=== PATIENT | male | born 1940 | race Native Hawaiian/Other Pacific Islander ===

== ENCOUNTER 2016-03-02 12:16 | Observation (INO) | payer OTHER ==
[~2016-03-02] VITALS: Ht 167.6 cm; Wt 60.5 kg
[2016-03-02] VITALS (8 sets, daily range): BP systolic 109–136; BP diastolic 62–78; PULSE 82–114; RESP 18–20; TEMP 97.7–98.2; O2SAT 95–98
[~2016-03-02 12:16] MED LIST: CEPH500C3 PO; CORE25TA PO; COUM2TAB PO; GLIM4 PO; GLUCTAB PO; HYDR-3129 PO; LEVO.1 PO; NITR0.4S SL; OMEP20TA39 PO; PRIN10TA PO; SPIR25 PO; ZOCO80TA PO
[2016-03-02] MEDS ORDERED: DIGO0.12 PO (12:40)
[2016-03-02] MEDS ORDERED: METH4TAB6 PO (12:40)
[2016-03-02] MEDS ORDERED: LORA10TA PO (12:40)
[2016-03-02] MEDS ORDERED: LEVO100T5 PO (12:40)
[2016-03-02] MEDS ORDERED: METF500T PO (12:40)
[2016-03-02] MEDS ORDERED: SIMV10TA PO (12:40)
[2016-03-02] MEDS ORDERED: NITR0.4S SL (12:40)
[2016-03-02] MEDS ORDERED: CARV25TA PO (12:40)
[2016-03-02] MEDS ORDERED: WARF-23 PO (12:40)
[2016-03-02] MEDS ORDERED: FURO40TA PO (12:40)
[2016-03-02] MEDS ORDERED: OMEP20TA PO (12:40)
[2016-03-02] MEDS ORDERED: BENZ1CAP8 PO (12:40)
[2016-03-02] MEDS ORDERED: GLIM4TAB PO (12:40)
[2016-03-02] MEDS ORDERED: SODIUM CHLORIDE 0.9% FLUSH 5 ML FLUSH IVF PRN (12:45)
--- NOTE | 2016-03-02 12:50 | PD ---
HPI Chief Complaint: Cold / Flu Symptoms Time Seen by Provider: 12:47 Travel History International Travel<30 days: No Contact w/Intl Traveler<30days: No Traveled to known affect area: No History of Present Illness HPI Patient comes in complaining of cough and congestion as well as bilateral lower extremity edema began for 5 days ago. Patient saw his primary care doctor 3 days ago with a prescription for prednisone and Lasix but has not been able to take his medication secondary to coughing the point of emesis causing it to not stay down. Patient reports associated decreased appetite. Denies any diarrhea , nausea, chest pain, shortness of breath, loss or change in bowel or bladder, bloody emesis, or fevers. Cough is worse with lying flat. PFSH Past Medical History Arthritis: No Asthma: No Autoimmune Disease: No Blood Disorders: No Anxiety: No Depression: No Heart Rhythm Problems: Yes Cancer: No Cardiovascular Problems: Yes High Cholesterol: Yes Chemotherapy: No Chest Pain: Yes Congestive Heart Failure: Yes COPD: No Cerebrovascular Accident: No Coronary Artery Disease: Yes Diabetes: No Diminished Hearing: No Endocrine: No Gastrointestinal Disorders: No Glaucoma: No Genitourinary: No Headaches: No Hypertension: Yes Immune Disorder: No Musculoskeletal: No Neurologic: No Psychiatric: No Respiratory: Yes Myocardial Infarction: Yes Radiation Therapy: No Seizures: No Sleep Apnea: No Thyroid Disease: No Ulcer: Yes (REPORTS TAKING AMOXICILLIN AND BIAXIN FOR THIS) Past Surgical History Abdominal Surgery: No AICD: Yes Cardiac Surgery: Yes (CABG X2 IN 1991, PACEMAKER INSERTION IN 2002) Coronary Artery Bypass Graft: Yes (1992) Ear Surgery: No Endocrine Surgery: No Eye Surgery: No Genitourinary Surgery: No Gynecologic Surgery: No Joint Replacement: No Oral Surgery: No Pacemaker: Yes (08-30-03 BI VENTRICULAR PACER) Thoracic Surgery: No Social History Alcohol Use: No Tobacco Use: No Substance Use: No Allergies-Medications (Allergen,Severity, Reaction): Coded Allergies: Amiodarone (Verified Allergy, Severe, HAD SEIZURE TO AMIODARONE INFUSION BUT TOLERATES ORAL FORM, 03/02/16) Reported Meds & Prescriptions Reported Meds & Active Scripts Active Reported Nitrostat SL (Nitroglycerin) 0.4 Mg Subl 0.4 Mg SL DIRECTED PRN 1 tablet under the tongue as needed for chest pain. Repeat every 5 minutes for a total of 3 DOSES or call 911 if NO relief. Furosemide 40 Mg Tab 40 Mg PO DAILY Warfarin 5 Mg Tab 5 Mg PO DAILY Glimepiride 4 Mg Tab 4 Mg PO DAILY Take with breakfast or first main meal Loratadine 10 Mg Tab 10 Mg PO DAILY Benzonatate 100 Mg Cap 200 Mg PO TID PRN Simvastatin 10 Mg Tab 10 Mg PO EVERY OTHER DAY Carvedilol 25 Mg Tab 25 Mg PO BID Metformin (Metformin HCl) 500 Mg Tab 1,000 Mg PO BIDPC With meals Levothyroxine (Levothyroxine Sodium) 100 Mcg Tab 100 Mcg PO DAILY Digoxin 0.125 Mg Tab 0.125 Mg PO DAILY Omeprazole 20 Mg Tab 20 Mg PO DAILY Methylprednisolone 4 Mg Tab 4 Mg PO DAILY Review of Systems Except as stated in HPI: all other systems reviewed are Neg Physical Exam Narrative GENERAL: Well-developed, well nourished, in no acute distress, and non-ill appearing. SKIN: Warm and dry. HEAD: Atraumatic. Normocephalic. EYES: Pupils equal and round. EOMI. No scleral icterus. No injection or drainage. ENT: No nasal bleeding or discharge. Mucous membranes pink and moist. NECK: Trachea midline. Supple. No nuclear rigidity. CARDIOVASCULAR: Regular rate and rhythm. No murmur appreciated. 2+ pitting edema bilaterally. RESPIRATORY: No accessory muscle use. No respiratory distress. Rhonchi noted throughout. Breath sounds equal bilaterally. MUSCULOSKELETAL: No obvious deformities. No clubbing. No cyanosis. No edema. Full range of motion. NEUROLOGICAL: Awake and alert. No obvious cranial nerve deficits. Motor grossly within normal limits. Normal speech. PSYCHIATRIC: Appropriate mood and affect; insight and judgment normal. Data Data Last Documented VS Vital Signs Date Time Temp Pulse Resp B/P Pulse Ox O2 Delivery O2 Flow Rate FiO2 03/02/16 12:42 18 97 Room Air 03/02/16 12:18 97.7 114 136/78 Orders Complete Blood Count With Diff (03/02/16 12:37) Comprehensive Metabolic Panel (03/02/16 12:37) B-Type Natriuretic Peptide (03/02/16 12:37) Act Partial Throm Time (Ptt) (03/02/16 12:37) Prothrombin Time / Inr (Pt) (03/02/16 12:37) Magnesium (Mg) (03/02/16 12:37) Ckmb (Isoenzyme) Profile (03/02/16 12:37) Troponin I (03/02/16 12:37) Iv Access Insert/Monitor (03/02/16 12:37) Electrocardiogram (03/02/16 12:37) Ecg Monitoring (03/02/16 12:37) Oximetry (03/02/16 12:37) Oxygen Administration (03/02/16 12:37) Chest, Single Ap (03/02/16 12:37) Sodium Chloride 0.9% Flush (Ns Flush) (03/02/16 12:45) Furosemide Inj (Lasix Inj) (03/02/16 13:15) Albuterol-Ipratropium Neb (Duoneb Neb) (03/02/16 13:45) CKMB (03/02/16 13:17) CKMB% (03/02/16 13:17) Phytonadione (Mephyton) (03/02/16 14:15) Diet Heart Healthy (03/02/16 Dinner) Admit Order (Ed Use Only) (03/02/16 15:33) Place In Observation (03/02/16 ) Vital Signs (Adult) Q4H (03/02/16 15:32) Activity Oob With Assistance (03/02/16 15:32) Bedside Glucose ANAM.AC&HS (03/02/16 15:32) ^ Recreation Attendant Supervisor / Telemetry .CONTINUOUS (03/02/16 15:32) Intake + Output ANAM.QSHIFT (03/02/16 15:32) Sodium Chloride 0.9% Flush (Ns Flush) (03/02/16 15:45) Sodium Chloride 0.9% Flush (Ns Flush) (03/02/16 21:00) Acetaminophen (Tylenol) (03/02/16 16:00) Ondansetron Inj (Zofran Inj) (03/02/16 16:00) Prochlorperazine Supp (Compazine Supp) (03/02/16 16:00) Bisacodyl Supp (Dulcolax Supp) (03/02/16 16:00) Magnesium Hydroxide Liq (Milk Of Magnesi (03/02/16 16:00) Sennosides (Senokot) (03/02/16 16:00) Basic Metabolic Panel (Bmp) (03/03/16 06:00) Complete Blood Count With Diff (03/03/16 06:00) Resp Oxygen Wilfredo C Titrat 1-4 L (03/02/16 ) Pt Request For Service (03/02/16 15:32) Case Management Consult (03/02/16 15:32) Enoxaparin Inj (Lovenox Inj) (03/02/16 15:45) Scd Bilateral/Knee High ANAM.BID (03/02/16 15:32) Jeremiah Bilateral/Knee High ANAM.QSHIFT (03/02/16 15:32) Labs Laboratory Tests Test 03/02/16 13:17 White Blood Count 6.6 TH/MM3 Red Blood Count 3.90 MIL/MM3 Hemoglobin 10.2 GM/DL Hematocrit 30.8 % Mean Corpuscular Volume 79.0 FL Mean Corpuscular Hemoglobin 26.3 PG Mean Corpuscular Hemoglobin 33.3 % Concent Red Cell Distribution Width 16.5 % Platelet Count 261 TH/MM3 Mean Platelet Volume 8.2 FL Neutrophils (%) (Auto) % Lymphocytes (%) (Auto) % Monocytes (%) (Auto) % Eosinophils (%) (Auto) % Basophils (%) (Auto) % Neutrophils # (Auto) TH/MM3 Lymphocytes # (Auto) TH/MM3 Monocytes # (Auto) TH/MM3 Eosinophils # (Auto) TH/MM3 Basophils # (Auto) TH/MM3 CBC Comment AUTO DIFF Differential Total Cells 100 Counted Neutrophils % (Manual) 77 % Lymphocytes % 13 % Monocytes % 8 % Eosinophils % 2 % Neutrophils # (Manual) 5.1 TH/MM3 Differential Comment FINAL DIFF MANUAL Platelet Estimate NORMAL Platelet Morphology Comment NORMAL Prothrombin Time 120.5 SEC Prothromb Time International 9.9 RATIO Ratio Activated Partial 69.0 SEC Thromboplast Time Sodium Level 129 MEQ/L Potassium Level 3.8 MEQ/L Chloride Level 92 MEQ/L Carbon Dioxide Level 25.7 MEQ/L Anion Gap 11 MEQ/L Blood Urea Nitrogen 14 MG/DL Creatinine 1.39 MG/DL Estimat Glomerular Filtration 50 ML/MIN Rate Random Glucose 132 MG/DL Calcium Level 8.9 MG/DL Magnesium Level 1.5 MG/DL Total Bilirubin 1.4 MG/DL Aspartate Amino Transf 27 U/L (AST/SGOT) Alanine Aminotransferase 23 U/L (ALT/SGPT) Alkaline Phosphatase 66 U/L Total Creatine Kinase 113 U/L Creatine Kinase MB 2.1 NG/ML Troponin I LESS THAN 0.02 NG/ML B-Type Natriuretic Peptide 901 PG/ML Total Protein 7.4 GM/DL Albumin 3.3 GM/DL MDM Medical Decision Making Medical Screen Exam Complete: Yes Emergency Medical Condition: Yes Interpretation(s) EKG reviewed by Dr. Gabriel. Shows paced rhythm of 99. No STEMI and no acute changes. Differential Diagnosis CHF exacerbation, COPD, pneumonia, bronchitis, other Narrative Course Patient was seen and examined. Initial laboratory and radiology studies were ordered. Patient is given Lasix as well as DuoNeb breathing treatment that she reported improvement of symptoms. Labs were reviewed. Patient was discussed with Dr. Gabriel, who saw and evaluated the patient has agreed with plan of care and disposition. Recommended placing the patient in observation. Discussed all findings and plan care of patient and family, who is in agreement with having patient admitted to the hospital. Physician Communication Physician Communication [id number] Kelly, who is agreeable to admit the patient. Diagnosis Primary Impression: CHF exacerbation Qualified Code: I50.9 - Acute on chronic congestive heart failure, unspecified congestive heart failure type Additional Impression: Elevated INR Garfield Macario Mar 02, 2016 12:50
--- NOTE | 2016-03-02 12:59 | RADRPT ---
EXAM DATE/TIME: 03/02/2016 12:39 [place] COMPARISON: No previous studies available for comparison. INDICATIONS : Patient has had productive cough for a week. MEDICAL HISTORY : None. SURGICAL HISTORY : Pacemaker. Quadruple Bypass. ENCOUNTER: Initial ACUITY: 1 week PAIN SCORE: 0/10 LOCATION: Bilateral chest FINDINGS: A single view of the chest demonstrates the lungs to be symmetrically aerated without evidence of mas s, infiltrate or effusion. The heart size is enlarged. There is evidence of previous cardiothoracic surgery. There is a pacemaker on the left side. The bony structures are grossly intact.. CONCLUSION: 1. No acute pulmonary infiltrates. 2. Moderate compensated cardiomegaly. Romulo Koch MD on March 02, 2016 at 12:57 Board Certified Radiologist. This report was verified electronically.
[2016-03-02] MEDS ORDERED: FUROSEMIDE 40 MG/4 ML VIAL IV PUSH ONE (13:15)
[2016-03-02 13:35] LABS: HEMATOCRIT 30.8 % (39.0-51.0); MEAN CORPUSCULAR HEMOGLOBIN 26.3 PG (27.0-34.0); MEAN CORPUSCULAR HGB CONC 33.3 % (32.0-36.0); PLATELET COUNT 261 TH/MM3 (150-450); RED CELL DISTRIBUTION WIDTH 16.5 % (11.6-17.2); WHITE BLOOD COUNT 6.6 TH/MM3 (4.0-11.0)
[2016-03-02 13:38] LABS: HEMO FLAGS AUTO DIFF
[2016-03-02] MEDS: RESP: ALBUTEROL 2.5 MG/IPRATROPIUM 0.5 MG NEB (SCH) INH (13:56)
[2016-03-02 13:58] LABS: PROTHROMBIN TIME - PATIENT 120.5 SEC (9.8-11.6)
[2016-03-02 14:01] LABS: INTERNATIONAL NORMALIZED RATIO 9.9 RATIO
[2016-03-02 14:02] LABS: ALT (GPT) 23 U/L (12-78); ANION GAP 11 MEQ/L (5-15); AST (GOT) 27 U/L (15-37); BICARBONATE 25.7 MEQ/L (21.0-32.0); BLOOD UREA NITROGEN 14 MG/DL (7-18); CHLORIDE 92 MEQ/L (98-107); GLOMERULAR FILTRATION RATE 50 ML/MIN (>89); MAGNESIUM 1.5 MG/DL (1.5-2.5); POTASSIUM 3.8 MEQ/L (3.5-5.1); SODIUM (NA) 129 MEQ/L (136-145)
[2016-03-02 14:05] LABS: ALKALINE PHOSPHATASE 66 U/L (45-117); CREATINE KINASE 113 U/L (39-308); TOTAL BILIRUBIN ADULT 1.4 MG/DL (0.2-1.0)
[2016-03-02] MEDS ORDERED: PHYTONADIONE 5 MG TAB PO ONE (14:15)
[2016-03-02 14:18] LABS: CKMB 2.1 NG/ML (0.5-3.6)
[2016-03-02 14:27] LABS: EOSINOPHILS 2 % (0-4); NEUTROPHIL # MANUAL DIFF 5.1 TH/MM3 (1.8-7.7); PLATELET ESTIMATE SMEAR NORMAL (NORMAL); PLATELET MORPHOLOGY NORMAL (NORMAL); POLYS (SEG NEUTROPHILS) 77 % (16-70); SCAN/DIFF FINAL DIFF MANUAL; WBC DIFF SAMPLE 100
--- NOTE | 2016-03-02 14:40 | PD ---
Data Data Last Documented VS Vital Signs Date Time Temp Pulse Resp B/P Pulse Ox O2 Delivery O2 Flow Rate FiO2 03/02/16 12:42 18 97 Room Air 03/02/16 12:18 97.7 114 136/78 Orders Complete Blood Count With Diff (03/02/16 12:37) Comprehensive Metabolic Panel (03/02/16 12:37) B-Type Natriuretic Peptide (03/02/16 12:37) Act Partial Throm Time (Ptt) (03/02/16 12:37) Prothrombin Time / Inr (Pt) (03/02/16 12:37) Magnesium (Mg) (03/02/16 12:37) Ckmb (Isoenzyme) Profile (03/02/16 12:37) Troponin I (03/02/16 12:37) Iv Access Insert/Monitor (03/02/16 12:37) Electrocardiogram (03/02/16 12:37) Ecg Monitoring (03/02/16 12:37) Oximetry (03/02/16 12:37) Oxygen Administration (03/02/16 12:37) Chest, Single Ap (03/02/16 12:37) Sodium Chloride 0.9% Flush (Ns Flush) (03/02/16 12:45) Furosemide Inj (Lasix Inj) (03/02/16 13:15) Albuterol-Ipratropium Neb (Duoneb Neb) (03/02/16 13:45) CKMB (03/02/16 13:17) CKMB% (03/02/16 13:17) Phytonadione (Mephyton) (03/02/16 14:15) Labs Laboratory Tests Test 03/02/16 13:17 White Blood Count 6.6 TH/MM3 Red Blood Count 3.90 MIL/MM3 Hemoglobin 10.2 GM/DL Hematocrit 30.8 % Mean Corpuscular Volume 79.0 FL Mean Corpuscular Hemoglobin 26.3 PG Mean Corpuscular Hemoglobin 33.3 % Concent Red Cell Distribution Width 16.5 % Platelet Count 261 TH/MM3 Mean Platelet Volume 8.2 FL Neutrophils (%) (Auto) % Lymphocytes (%) (Auto) % Monocytes (%) (Auto) % Eosinophils (%) (Auto) % Basophils (%) (Auto) % Neutrophils # (Auto) TH/MM3 Lymphocytes # (Auto) TH/MM3 Monocytes # (Auto) TH/MM3 Eosinophils # (Auto) TH/MM3 Basophils # (Auto) TH/MM3 CBC Comment AUTO DIFF Differential Total Cells 100 Counted Neutrophils % (Manual) 77 % Lymphocytes % 13 % Monocytes % 8 % Eosinophils % 2 % Neutrophils # (Manual) 5.1 TH/MM3 Differential Comment FINAL DIFF MANUAL Platelet Estimate NORMAL Platelet Morphology Comment NORMAL Prothrombin Time 120.5 SEC Prothromb Time International 9.9 RATIO Ratio Activated Partial 69.0 SEC Thromboplast Time Sodium Level 129 MEQ/L Potassium Level 3.8 MEQ/L Chloride Level 92 MEQ/L Carbon Dioxide Level 25.7 MEQ/L Anion Gap 11 MEQ/L Blood Urea Nitrogen 14 MG/DL Creatinine 1.39 MG/DL Estimat Glomerular Filtration 50 ML/MIN Rate Random Glucose 132 MG/DL Calcium Level 8.9 MG/DL Magnesium Level 1.5 MG/DL Total Bilirubin 1.4 MG/DL Aspartate Amino Transf 27 U/L (AST/SGOT) Alanine Aminotransferase 23 U/L (ALT/SGPT) Alkaline Phosphatase 66 U/L Total Creatine Kinase 113 U/L Creatine Kinase MB 2.1 NG/ML Troponin I LESS THAN 0.02 NG/ML B-Type Natriuretic Peptide 901 PG/ML Total Protein 7.4 GM/DL Albumin 3.3 GM/DL [facility] Supervised Visit with RODGER: Yes Narrative Course The history, exam, and medical decision-making in the associated mid-level provider note were completed with my assistance. I reviewed and agree with the findings presented. I attest that I had a [id number] encounter with the patient on the same day, and personally performed and documented my assessment and findings in the medical record. *My assessment and Findings: 75-year-old man, apparently has some history of CHF. He has a biventricular AICD. 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 This appears to be partially treated. There is recommendations made for chemoradiation at least according to her consult note from the radiation oncologist. Patient reports that he was recommended not to have chemotherapy or radiation did not need of surgery. Consult states there is not a surgical candidate. He indicates he presents here about a week's worth of worsening cough cold shortness of breath symptoms. He has some ankle edema. He was placed on steroids antibiotics and diuretics by his primary physician. Is not improving secondary emergency department. He has diffuse wheezing throughout the posterior lung almanza with Rales in the bases. Chest x-ray doesn't show any obvious pulmonary edema or pneumonia. Labs show his INR is elevated, mildly elevated BNP, but otherwise unremarkable. Likely mild CHF exacerbation, possibly concomitant URI bronchitis. Given his worsening symptoms despite outpatient treatment plan on admission for diuresis, and turned out his cardiac enzymes, reassess. Continue bronchodilators. Diagnosis Primary Impression: CHF exacerbation Qualified Code: I50.9 - Acute on chronic congestive heart failure, unspecified congestive heart failure type Additional Impression: Elevated INR Aquiles Gabriel MD Mar 02, 2016 14:40
[2016-03-02] MEDS ORDERED: ENOXAPARIN SODIUM 40 MG/0.4 ML SYRINGE SQ SCH (15:45)
[2016-03-02] MEDS ORDERED: SODIUM CHLORIDE 0.9% FLUSH 5 ML FLUSH FLUSH PRN (15:45)
[2016-03-02] MEDS ORDERED: BISACODYL 10 MG SUPP PR PRN (16:00)
[2016-03-02] MEDS ORDERED: SENNOSIDES 8.6 MG TAB PO PRN (16:00)
[2016-03-02] MEDS ORDERED: ACETAMINOPHEN 325 MG TAB PO PRN (16:00)
[2016-03-02] MEDS ORDERED: PROCHLORPERAZINE 25 MG SUPP PR PRN (16:00)
[2016-03-02] MEDS ORDERED: MAGNESIUM HYDROXIDE SUSP 30 ML CUP PO PRN (16:00)
[2016-03-02] MEDS ORDERED: ONDANSETRON HCL 4 MG/2 ML VIAL IVP PRN (16:00)
[2016-03-02] MEDS: FUROSEMIDE 40 MG/4 ML VIAL IV PUSH SCH (18:00)
--- NOTE | 2016-03-02 18:08 | HHI.HP ---
[facility] Chiara Olsen MD (Vipin) Admission Diagnosis CHF exacerbation, elevated INR Diagnoses: Chief Complaint: "Cold" Travel History International Travel<30 Days: No Contact w/Intl Traveler <30 Da: No Traveled to Known Affected Are: No History of Present Illness This is a 75-year-old male patient with past medical history includes hyperlipidemia, CHF, CAD status post OR and CABG, hypertension, diabetes mellitus type 2. Patient also is on Coumadin with a supratherapeutic INR of 9.9 ; denies having atrial fibrillation and is not sure why he is taking Coumadin. Patient reports he had a cold which started 8 days ago and consisted of cough and congestion. Patient was seen by his primary care provider and given prednisone as well as Lasix 3 days ago. Patient reports he is not gotten any better and is unable to take the by mouth prednisone and Lasix as he is coughing so much that it causes him to vomit up the medication. Patient's is in the room and also reports he's had bilateral lower extremity edema for the past 5-8 days. Patient requires 2 pillows to sleep at night and notices that his cough is worse when he is walking or trying to lay down to rest. Patient denies chest pain shortness of breath diarrhea constipation fevers or chills. Patient also denies weight gain. Patient denies hematemesis nose bleeding bright red blood per rectum or tarry stools. Review of Systems Other All other systems reviewed and negative except as mentioned in history of present illness Past Family Social History Past Medical History hyperlipidemia, CHF, CAD status post OR and CABG, hypertension, diabetes mellitus type 2. Patient also is on Coumadin with a supratherapeutic INR of 9.9 ; denies having atrial fibrillation and is not sure why he is taking Coumadin Past Surgical History Coronary artery bypass graft Pacemaker placed Reported Medications Nitrostat SL (Nitroglycerin) 0.4 Mg Subl 0.4 Mg SL DIRECTED PRN 1 tablet under the tongue as needed for chest pain. Repeat every 5 minutes for a total of 3 DOSES or call 911 if NO relief. Furosemide 40 Mg Tab 40 Mg PO DAILY Warfarin 5 Mg Tab 5 Mg PO DAILY Glimepiride 4 Mg Tab 4 Mg PO DAILY Take with breakfast or first main meal Loratadine 10 Mg Tab 10 Mg PO DAILY Benzonatate 100 Mg Cap 200 Mg PO TID PRN Simvastatin 10 Mg Tab 10 Mg PO EVERY OTHER DAY Carvedilol 25 Mg Tab 25 Mg PO BID Metformin (Metformin HCl) 500 Mg Tab 1,000 Mg PO BIDPC With meals Levothyroxine (Levothyroxine Sodium) 100 Mcg Tab 100 Mcg PO DAILY Digoxin 0.125 Mg Tab 0.125 Mg PO DAILY Omeprazole 20 Mg Tab 20 Mg PO DAILY Methylprednisolone 4 Mg Tab 4 Mg PO DAILY Allergies: Coded Allergies: Amiodarone (Verified Allergy, Severe, HAD SEIZURE TO AMIODARONE INFUSION BUT TOLERATES ORAL FORM, 03/02/16) Active Ordered Medications Current Medications Medications (Trade) Dose Ordered Sig/Connie Route Start Time Stop Time Status Last Admin (NS Flush) 2 ml UNSCH PRN FLUSH 03/02/16 15:45 (NS Flush) 2 ml BID FLUSH 03/02/16 21:00 (Tylenol) 650 mg Q4H PRN PO 03/02/16 16:00 (Zofran Inj) 4 mg Q6H PRN IVP 03/02/16 16:00 (Compazine Supp) 25 mg Q12H PRN KS 03/02/16 16:00 (Dulcolax Supp) 10 mg DAILY PRN KS 03/02/16 16:00 (Milk Of Magnesia Liq) 30 ml Q12H PRN PO 03/02/16 16:00 (Senokot) 17.2 mg Q12H PRN PO 03/02/16 16:00 (Lasix Inj) 40 mg BID@,18 IV PUSH 03/02/16 18:00 Family History Patient reports the most history otherwise had but they are in [place] and he is not sure of their health history Social History Patient denies EtOH use or illicit drug use next line distant history of a 3 pack a day smoking habit for 30 years and his when he was younger Physical Exam Vital Signs Vital Signs Date Time Temp Pulse Resp B/P Pulse Ox O2 Delivery O2 Flow Rate FiO2 03/02/16 16:55 98.0 96 19 113/62 97 03/02/16 16:18 91 20 135/63 95 Room Air 03/02/16 14:00 95 21 03/02/16 12:42 18 97 Room Air 03/02/16 12:42 97 Room Air 03/02/16 12:18 97.7 114 20 136/78 95 Room Air Physical Exam GENERAL: This is a well-nourished, well-developed patient, in no apparent distress. SKIN: No rashes, ecchymoses or lesions. Cool and dry. HEAD: Atraumatic. Normocephalic. No temporal or scalp tenderness. EYES: Extraocular motions intact. No scleral icterus. No injection or drainage. ENT: Nose without bleeding, purulent drainage or septal hematoma. Throat without erythema, tonsillar hypertrophy or exudate. Uvula midline. Airway patent. NECK: Trachea midline. No JVD or lymphadenopathy. Supple, nontender, no meningeal signs. CARDIOVASCULAR: Regular rate and rhythm without murmurs, gallops, or rubs. RESPIRATORY: Bibasilar crackles, scattered wheezing GASTROINTESTINAL: Abdomen soft, non-tender, nondistended. No hepato-splenomegaly , or palpable masses. No guarding. MUSCULOSKELETAL: Left lower extremity 2-3+ pitting edema. Right lower extremity 1+ edema No calf tenderness. Negative Homans sign bilaterally. NEUROLOGICAL: Awake and alert. No focal deficits appreciated Motor and sensory grossly within normal limits. 4 out of 5 muscle strength in all muscle groups. Normal speech. Laboratory Laboratory Tests Test 03/02/16 13:17 White Blood Count 6.6 Red Blood Count 3.90 Hemoglobin 10.2 Hematocrit 30.8 Mean Corpuscular Volume 79.0 Mean Corpuscular Hemoglobin 26.3 Mean Corpuscular Hemoglobin 33.3 Concent Red Cell Distribution Width 16.5 Platelet Count 261 Mean Platelet Volume 8.2 Neutrophils (%) (Auto) Lymphocytes (%) (Auto) Monocytes (%) (Auto) Eosinophils (%) (Auto) Basophils (%) (Auto) Neutrophils # (Auto) Lymphocytes # (Auto) Monocytes # (Auto) Eosinophils # (Auto) Basophils # (Auto) CBC Comment AUTO DIFF Differential Total Cells 100 Counted Neutrophils % (Manual) 77 Lymphocytes % 13 Monocytes % 8 Eosinophils % 2 Neutrophils # (Manual) 5.1 Differential Comment FINAL DIFF MANUAL Platelet Estimate NORMAL Platelet Morphology Comment NORMAL Prothrombin Time 120.5 Prothromb Time International 9.9 Ratio Activated Partial 69.0 Thromboplast Time Sodium Level 129 Potassium Level 3.8 Chloride Level 92 Carbon Dioxide Level 25.7 Anion Gap 11 Blood Urea Nitrogen 14 Creatinine 1.39 Estimat Glomerular Filtration 50 Rate Random Glucose 132 Calcium Level 8.9 Magnesium Level 1.5 Total Bilirubin 1.4 Aspartate Amino Transf 27 (AST/SGOT) Alanine Aminotransferase 23 (ALT/SGPT) Alkaline Phosphatase 66 Total Creatine Kinase 113 Creatine Kinase MB 2.1 Troponin I LESS THAN 0.02 B-Type Natriuretic Peptide 901 Total Protein 7.4 Albumin 3.3 Result Diagram: 03/02/16 1317 03/02/16 1317 Imaging Last Impressions Chest X-Ray 03/02/16 1237 Signed Impressions: Service Date/Time: Wednesday, March 02, 2016 12:39 - CONCLUSION: 1. No acute pulmonary infiltrates. 2. Moderate compensated cardiomegaly. Romulo Koch MD Assessment and Plan Assessment and Plan This is a 75-year-old male patient with past medical history includes hyperlipidemia, CHF, CAD status post OR and CABG, hypertension, diabetes mellitus type 2. Patient also is on Coumadin with a supratherapeutic INR of 9.9 ; denies having atrial fibrillation and is not sure why he is taking Coumadin. Patient reports he had a cold which started 8 days ago and consisted of cough and congestion. As well as bilateral lower extremity edema. Acute on chronic CHF exacerbation; unknown type Failed outpatient therapy BNP 904 Chest x-ray will be reviewed by myself as well as Dr. Kelly and reveals no acute pulmonary infiltrates, moderate cardiomegaly Repeat BNP CBC and BMP in a.m. Lasix 40 mg IV twice a day Echocardiogram ordered and pending Consultation placed to cardiology patient under Dr. Stewart Probable COPD- scattered wheezing with 90+ pack year history Duo nebs scheduled and as needed Solu-Medrol 1251 Supratherapeutic INR 9.9 No active bleeding Vitamin K 2.5 mg by mouth given in emergency department Hold Coumadin Repeat INR in a.m. Monitor closely for signs of active bleeding Hyponatremia 129 likely hypervolemic Continue Lasix IV and recheck in a.m. Hypertension continue Coreg 25 mg twice a day Probable history of atrial fibrillation continue digoxin hold Coumadin EKG reviewed by myself as well as Dr. Kelly V paced rhythm rate 99 Hypothyroidism continue Synthroid Diabetes mellitus sliding scale insulin coverage will hold metformin and glimepiride Discussed plan of care with patient and at bedside RN and ER provider Written by Kat Cook, acting as scribe for Dr. Kelly on 03/02/16 at 18 :08. The documentation accurately reflects the work performed [id number] by me Dr. Kelly on 03/02/16 at 18:08. Kat Cook Mar 02, 2016 18:08 Etelvina Kelly MD Mar 02, 2016 19:33
[2016-03-02] MEDS ORDERED: DEXTROSE 50% IN WATER 50 ML VIAL(D50) IV PUSH PRN (18:15)
[2016-03-02] MEDS ORDERED: GLUCAGON 1 MG/ML VIAL OTHER PRN (18:15)
[2016-03-02] MEDS ORDERED: methylPREDNISolone SOD SUCC 125 MG/2 ML VIAL IV PUSH ONE (19:30)
[2016-03-02] MEDS: INSULIN ASPART SUPPLEMENTAL SCALE SQ SCH (20:09)
[2016-03-02] MEDS: CARVEDILOL 12.5 MG TAB PO SCH (20:09)
[2016-03-02] MEDS: SODIUM CHLORIDE 0.9% FLUSH 5 ML FLUSH FLUSH SCH (20:09)
[2016-03-02] MEDS: RESP: ALBUTEROL 2.5 MG/IPRATROPIUM 0.5 MG NEB (SCH) NEB (20:40)
[2016-03-03] VITALS (9 sets, daily range): BP systolic 91–110; BP diastolic 51–59; PULSE 73–98; RESP 18–20; TEMP 96.7–98.1; O2SAT 95–99
[2016-03-03] MEDS: LEVOTHYROXINE SODIUM 100 MCG TAB PO SCH (05:59)
[2016-03-03] MEDS: INSULIN ASPART SUPPLEMENTAL SCALE SQ SCH ×4 (06:02→21:16)
[2016-03-03 07:26] LABS: AUTOMATED NEUTROPHIL # 3.4 TH/MM3 (1.8-7.7); BASOPHIL % 0.1 % (0.0-2.0); HEMATOCRIT 33.6 % (39.0-51.0); HEMO FLAGS DIFF FINAL; LYMPH % 16.2 % (9.0-44.0); LYMPHOCYTE # 0.7 TH/MM3 (1.0-4.8); MEAN CELL VOLUME 78.9 FL (80.0-100.0); MEAN CORPUSCULAR HEMOGLOBIN 25.6 PG (27.0-34.0); MEAN CORPUSCULAR HGB CONC 32.4 % (32.0-36.0); MONO % 3.2 % (0.0-8.0); NEUT % 80.5 % (16.0-70.0); PLATELET COUNT 280 TH/MM3 (150-450); RED BLOOD COUNT 4.26 MIL/MM3 (4.50-5.90); RED CELL DISTRIBUTION WIDTH 16.6 % (11.6-17.2); WHITE BLOOD COUNT 4.3 TH/MM3 (4.0-11.0)
[2016-03-03 07:40] LABS: BICARBONATE 27.8 MEQ/L (21.0-32.0); POTASSIUM 3.7 MEQ/L (3.5-5.1)
[2016-03-03] MEDS: RESP: ALBUTEROL 2.5 MG/IPRATROPIUM 0.5 MG NEB (SCH) NEB ×3 (08:00→20:15)
--- NOTE | 2016-03-03 08:10 | HHI.PR ---
Subjective Remarks Patient is in nad. Says he was able to sleep better last night. Less sob and cough. No n/v/d/c. LE edema improving somehow. Objective Vitals Vital Signs Date Time Temp Pulse Resp B/P Pulse Ox O2 Delivery O2 Flow Rate FiO2 03/03/16 05:37 98.1 80 20 109/51 95 03/02/16 23:32 98.2 82 20 109/62 98 03/02/16 20:40 98.2 98 20 122/65 98 03/02/16 20:38 21 03/02/16 19:55 84 03/02/16 16:55 98.0 96 19 113/62 97 03/02/16 16:18 91 20 135/63 95 Room Air 03/02/16 14:00 95 21 03/02/16 12:42 18 97 Room Air 03/02/16 12:42 97 Room Air 03/02/16 12:18 97.7 114 20 136/78 95 Room Air I/O 03/02/16 03/02/16 03/02/16 03/03/16 03/03/16 03/03/16 07:00 15:00 23:00 07:00 15:00 23:00 Intake Total 240 ml 350 ml Output Total 1350 ml 400 ml Balance -1110 ml -50 ml Intake Oral 240 ml 350 ml Output Urine Total 1350 ml 400 ml Result Diagram: 03/03/16 0614 03/03/16 0614 Imaging Last Impressions Chest X-Ray 03/02/16 1237 Signed Impressions: Service Date/Time: Wednesday, March 02, 2016 12:39 - CONCLUSION: 1. No acute pulmonary infiltrates. 2. Moderate compensated cardiomegaly. Romulo Koch MD Objective Remarks GENERAL: This is a well-nourished, well-developed patient, in no apparent distress. SKIN: No rashes, ecchymoses or lesions. Cool and dry. HEAD: Atraumatic. Normocephalic. No temporal or scalp tenderness. EYES: Extraocular motions intact. No scleral icterus. No injection or drainage. ENT: Nose without bleeding, purulent drainage or septal hematoma. Throat without erythema, tonsillar hypertrophy or exudate. Uvula midline. Airway patent. NECK: Trachea midline. No JVD or lymphadenopathy. Supple, nontender, no meningeal signs. CARDIOVASCULAR: Regular rate and rhythm without murmurs, gallops, or rubs. RESPIRATORY: Bibasilar crackles, scattered wheezing GASTROINTESTINAL: Abdomen soft, non-tender, nondistended. No hepato-splenomegaly , or palpable masses. No guarding. MUSCULOSKELETAL: Left lower extremity 2-3+ pitting edema. Right lower extremity 1+ edema No calf tenderness. Negative Homans sign bilaterally. NEUROLOGICAL: Awake and alert. No focal deficits appreciated Motor and sensory grossly within normal limits. 4 out of 5 muscle strength in all muscle groups. Normal speech. A/P Assessment and Plan This is a 75-year-old male patient with past medical history includes hyperlipidemia, CHF, CAD status post [place] and CABG, hypertension, diabetes mellitus type 2. Patient also is on Coumadin with a supratherapeutic INR of 9.9 ; denies having atrial fibrillation and is not sure why he is taking Coumadin. Patient reports he had a cold which started 8 days ago and consisted of cough and congestion. As well as bilateral lower extremity edema. Acute on chronic CHF exacerbation; unknown type Failed outpatient therapy BNP 904 Chest x-ray reveals no acute pulmonary infiltrates, moderate cardiomegaly Repeat BNP, CBC and BMP in a.m. Lasix 40 mg IV twice a day Echocardiogram pending Consult cardiology Dr. Stewart, follows with him as OP as well Probable COPD- scattered wheezing with 90+ pack year history Duo nebs scheduled and as needed Solu-Medrol 1251 Supratherapeutic INR 9.9 No active bleeding Vitamin K 2.5 mg by mouth given in emergency department Hold Coumadin Repeat INR in a.m. Monitor closely for signs of active bleeding Hyponatremia 129 on admission likely hypervolemic. Na improving trending up Continue Lasix IV and recheck in a.m. Hypertension continue Coreg 25 mg twice a day Probable history of atrial fibrillation continue digoxin hold Coumadin EKG reviewed V paced rhythm rate 99 Hypothyroidism continue Synthroid Diabetes mellitus sliding scale insulin coverage will hold metformin and glimepiride Discussed with the patient, nurse dC when improved and cleared by cards. ECHO is pending Etelvina Kelly MD Mar 03, 2016 08:10
[2016-03-03] MEDS: PANTOPRAZOLE SOD 20 MG DELAYED RELEASE TAB PO SCH (08:21)
[2016-03-03] MEDS: FUROSEMIDE 40 MG/4 ML VIAL IV PUSH SCH ×2 (08:22→18:00)
[2016-03-03] MEDS: CARVEDILOL 12.5 MG TAB PO SCH ×2 (08:22→21:00)
[2016-03-03] MEDS: DIGOXIN 0.125 MG TAB PO SCH (08:22)
[2016-03-03] MEDS: SODIUM CHLORIDE 0.9% FLUSH 5 ML FLUSH FLUSH SCH ×2 (08:22→21:15)
[2016-03-03 11:46] LABS: INTERNATIONAL NORMALIZED RATIO 4.1 RATIO; PROTHROMBIN TIME - PATIENT 47.6 SEC (9.8-11.6)
--- NOTE | 2016-03-03 18:39 | MB ---
cc: FRANCY ZUÑIGA DATE OF CONSULTATION 03/03/16 1940 REASON FOR CONSULTATION Heart failure exacerbation. HISTORY OF PRESENT ILLNESS 75-year-old male with past medical history significant for hyperlipidemia, heart failure, as CAD status post coronary artery bypass graft, hypertension, diabetes type 2, pacemaker placement followed by Dr. Stewart who presented to the hospital with worsening shortness of breath on exertion for the last couple of days as well as bilateral leg edema in the setting of a recent upper respiratory infection with cough and congestion. Also he was unable to take his Lasix p.o. dosage at home in the last day. He denies chest pain, palpitations, syncope, lightheadedness, fevers, chills, abdominal pain, diarrhea or bleeding issues. Besides the shortness of breath on exertion and the leg edema he also reports requiring more than two pillows to sleep. He has been admitted with acute on chronic heart failure exacerbation for which cardiology has been consulted for further management and evaluation. REVIEW OF SYSTEMS Negative except for what is mentioned in HPI. PAST MEDICAL HISTORY 1. Hyperlipidemia, 2. Heart failure 3. CAD status post [place] and coronary artery bypass graft. 4. Hypertension 5. Diabetes mellitus 6. Atrial fibrillation on anticoagulation 7. Pacemaker placement. PAST SURGICAL HISTORY Coronary artery bypass graft and pacemaker placement MEDICATIONS Cardiac medications taken at home 1. Nitroglycerin 0.4 mg sublingual as needed for chest pain 2. Lasix 40 mg p.o. daily which he is not taking 3. Warfarin 5 mg p.o. daily 4. Simvastatin 10 mg p.o. daily, 5. Coreg 25 mg p.o. b.i.d. 6. Digoxin 0.125 mg p.o. daily. ALLERGIES AMIODARONE FAMILY HISTORY Noncontributory. SOCIAL HISTORY Denies alcohol use, smoking or illicit drug use. PHYSICAL EXAMINATION VITAL SIGNS: Temperature 97.9, RR 18, HR 89, BP 100/53, pulse 95. Admission weight 64 kg. GENERAL: He is awake, alert, oriented x3 in no acute distress. Family at bedside. NECK: No JVD, no carotid bruits. HEART: Regular rate and rhythm. No murmurs, rubs, gallops. There is a pacemaker in his left side chest. LUNGS: Good inspiratory effort. No rhonchi, wheezes or rales. ABDOMEN: Soft, nontender, nondistended. Positive bowel sounds. EXTREMITIES: No edema. No cyanosis and pulses throughout. LABORATORY DATA CBC - hemoglobin 10, hematocrit 33, platelet count of 280, INR 9.9 trending down to 4.1. Chemistries - sodium 131, potassium 3.7, chloride 90, BUN 18, creatinine 1.31. Troponins less than 0.02. BNP 1725. IMAGING STUDIES Chest x-ray - No acute cardiopulmonary process and moderate compensated cardiomegaly. ASSESSMENT AND PLAN 75-year-old male with known history of heart failure and CAD that presented to the hospital with acute on chronic systolic heart failure exacerbation in the setting of a recent upper respiratory infection as well as noncompliance with home medications. Currently, he remains fairly hemodynamically stable and relieved of shortness of breath. He has been treated here with IV diuresis with adequate urine output. For now I would recommend to continue IV diuresis with Lasix IV as well as to continue the Coreg and digoxin, the statin and hold the Warfarin given supra-therapeutic INR. Also consider starting a low-dose PINKY inhibitor mindful of his mildly elevated creatinine. Get a 2-D echo to better assess LV systolic function. Thank you for the opportunity to participate in the care of this patient. Will be available as a PRN basis for any questions or concerns MD MEERA Pollard/SA /4:30 PM /6:16 PM PETERSON
--- NOTE | 2016-03-03 19:02 | EC ---
Study Study Date:03/03/2016 STUDY CONCLUSIONS SUMMARY - Left ventricle: The cavity size was moderately to severely dilated. Wall thickness was normal. Systolic function was severely reduced. The estimated ejection fraction was 10%. Diffuse hypokinesis. - Mitral valve: Moderate to severe regurgitation. - Tricuspid valve: Moderate-severe regurgitation. - Pulmonary arteries: PA peak pressure: 58mm Hg (S). If LV function is below 40, please consider prescribing an ACEI or ARB or document rationale for non-use. PROCEDURE DATA STUDY STATUS: Elective. Procedure: Transthoracic echocardiography. Image quality was good. Scanning was performed from the parasternal, apical, and subcostal acoustic windows. Study completion: The patient tolerated the procedure well. Transthoracic echocardiography. M-mode, complete 2D, complete spectral Doppler, and color Doppler. Patient status: Inpatient. CARDIAC ANATOMY LEFT VENTRICLE: The cavity size was moderately to severely dilated. Wall thickness was normal. Systolic function was severely reduced. The estimated ejection fraction was 10%. Diffuse hypokinesis. AORTIC VALVE: Trileaflet; normal thickness leaflets. Doppler: Transvalvular velocity was within the normal range. There was no stenosis. No regurgitation. AORTA: Aortic root: The aortic root was normal in size. MITRAL VALVE: Structurally normal valve. Doppler: Transvalvular velocity was within the normal range. There was no evidence for stenosis. Moderate to severe regurgitation. Peak gradient: 4mm Hg (D). LEFT ATRIUM: The atrium was normal in size. RIGHT VENTRICLE: The cavity size was normal. Wall thickness was normal. PULMONIC VALVE: Doppler: Transvalvular velocity was within the normal range. There was no evidence for stenosis. No regurgitation. TRICUSPID VALVE: Structurally normal valve. Doppler: Transvalvular velocity was within the normal range. Moderate-severe regurgitation. PULMONARY ARTERY: The main pulmonary artery was normal-sized. Systolic pressure was within the normal range. RIGHT ATRIUM: The atrium was normal in size. PERICARDIUM: There was no pericardial effusion. SYSTEMIC VEINS: Inferior vena cava: The vessel was normal in size. BASIC MEASUREMENTS ADULT Normal Left ventricle LV internal dimension, ED, chordal level, *60 mm 43-52 PLAX LV internal dimension, ES, chordal level, *57.1 mm 23-38 PLAX Fractional shortening, chordal level, PLAX *5 % >29 LV posterior wall thickness, ED 6.78 mm IVS/LVPW ratio, ED 1.28 <1.3 Ventricular septum Septal thickness, ED 8.66 mm Aortic valve Leaflet separation 18 mm 15-26 Left atrium Anterior-posterior dimension 39 mm Right ventricle RV internal dimension, ED, PLAX *18.9 mm 19-38 BASIC MEASUREMENTS ADULT Normal Aortic valve Leaflet separation 18 mm 15-26 Aorta Root diameter, ED 27 mm 20-37 DOPPLER MEASUREMENTS ADULT Normal Main pulmonary artery Pressure, S *58 mm Hg =30 Mitral valve Peak E-wave velocity 103 cm/s Peak gradient, D 4 mm Hg Maximal regurgitant velocity 441 cm/s Tricuspid valve Regurgitant peak velocity 307 cm/s Peak RV-RA gradient, S 38 mm Hg Maximal regurgitant velocity 307 cm/s Systemic veins Estimated CVP 10 mm Hg Right ventricle RV pressure, S *58 mm Hg <30 LEGEND: Mean values are shown as u=mean value. Asterisk (*) mclaughlin values outside specified normal range. Amended Avila Iqbal [id number]
[2016-03-04] VITALS (10 sets, daily range): BP systolic 106–127; BP diastolic 63–71; PULSE 92–111; RESP 18–20; TEMP 97.4–98.6; O2SAT 95–97
[2016-03-04] MEDS: RESP: ALBUTEROL 2.5 MG/IPRATROPIUM 0.5 MG NEB (PRN) NEB ×2 (00:24→04:20)
[2016-03-04] MEDS ORDERED: guaiFENesin SOLUTION 200 MG/10 ML CUP PO ONE (01:15)
[2016-03-04] MEDS: LEVOTHYROXINE SODIUM 100 MCG TAB PO SCH (05:36)
[2016-03-04 06:02] LABS: BASOPHIL # 0.1 TH/MM3 (0-0.2); BASOPHIL % 0.4 % (0.0-2.0); HEMATOCRIT 35.8 % (39.0-51.0); HEMO FLAGS DIFF FINAL; LYMPHOCYTE # 0.8 TH/MM3 (1.0-4.8); MEAN CORPUSCULAR HEMOGLOBIN 25.4 PG (27.0-34.0); MEAN CORPUSCULAR HGB CONC 32.6 % (32.0-36.0); MONO % 5.8 % (0.0-8.0); NEUT % 89.8 % (16.0-70.0); PLATELET COUNT 319 TH/MM3 (150-450); RED BLOOD COUNT 4.59 MIL/MM3 (4.50-5.90); RED CELL DISTRIBUTION WIDTH 16.6 % (11.6-17.2)
[2016-03-04 06:07] LABS: INTERNATIONAL NORMALIZED RATIO 3.7 RATIO; PROTHROMBIN TIME - PATIENT 43.7 SEC (9.8-11.6)
[2016-03-04] MEDS: INSULIN ASPART SUPPLEMENTAL SCALE SQ SCH ×4 (06:40→22:18)
[2016-03-04 06:44] LABS: BICARBONATE 21.2 MEQ/L (21.0-32.0); MAGNESIUM 1.8 MG/DL (1.5-2.5); POTASSIUM 4.2 MEQ/L (3.5-5.1)
[2016-03-04] MEDS: RESP: ALBUTEROL 2.5 MG/IPRATROPIUM 0.5 MG NEB (SCH) NEB ×3 (07:36→20:08)
[2016-03-04] MEDS: DIGOXIN 0.125 MG TAB PO SCH (09:00)
[2016-03-04] MEDS: FUROSEMIDE 40 MG/4 ML VIAL IV PUSH SCH (09:00)
[2016-03-04] MEDS: PANTOPRAZOLE SOD 20 MG DELAYED RELEASE TAB PO SCH (09:01)
[2016-03-04] MEDS: PRAVASTATIN SOD 20 MG TAB PO SCH (09:01)
[2016-03-04] MEDS: CARVEDILOL 12.5 MG TAB PO SCH ×2 (09:01→22:17)
[2016-03-04] MEDS: SODIUM CHLORIDE 0.9% FLUSH 5 ML FLUSH FLUSH SCH ×2 (09:02→21:00)
[2016-03-04] MEDS: guaiFENesin E.R. 600 MG TAB PO SCH ×2 (09:27→22:17)
[2016-03-04] MEDS: BENZONATATE 100 MG CAP PO PRN ×2 (09:28→19:17)
--- NOTE | 2016-03-04 10:42 | HHI.PR ---
Subjective Remarks Follow-up heart failure. Improving shortness of breath but complains of cough keeping him from sleeping. Discussed with RN Objective Vitals Vital Signs Date Time Temp Pulse Resp B/P Pulse Ox O2 Delivery O2 Flow Rate FiO2 03/04/16 07:46 97.5 101 18 122/71 96 03/04/16 04:21 98.2 96 20 119/67 96 03/04/16 00:40 107 03/04/16 00:18 98.2 92 20 124/66 96 03/03/16 20:16 96 03/03/16 19:47 98.1 89 20 110/59 96 03/03/16 16:00 96.7 73 18 99/56 99 03/03/16 12:00 97.9 89 18 100/53 95 I/O 03/03/16 03/03/16 03/03/16 03/04/16 03/04/16 03/04/16 07:00 15:00 23:00 07:00 15:00 23:00 Intake Total 350 ml 720 ml 200 ml 20 ml Output Total 400 ml 1050 ml Balance -50 ml -330 ml 200 ml 20 ml Intake Oral 350 ml 720 ml 200 ml 20 ml Output Urine Total 400 ml 1050 ml # Voids 2 1 Result Diagram: 03/04/16 0538 03/04/16 0538 Imaging Last Impressions Chest X-Ray 03/02/16 1237 Signed Impressions: Service Date/Time: Wednesday, March 02, 2016 12:39 - CONCLUSION: 1. No acute pulmonary infiltrates. 2. Moderate compensated cardiomegaly. Romulo Koch MD Objective Remarks GENERAL: Well-developed, well-nourished in no distress SKIN: Warm and dry. HEAD: Atraumatic. Normocephalic. EYES: Pupils equal and round. No scleral icterus. No injection or drainage. ENT: No nasal bleeding or discharge. Mucous membranes pink and moist. NECK: Trachea midline. No JVD. CARDIOVASCULAR: Regular rate and rhythm. RESPIRATORY: No accessory muscle use. Decreased Breath sounds equal bilaterally. GASTROINTESTINAL: Abdomen soft, non-tender, nondistended. MUSCULOSKELETAL: Extremities without clubbing, cyanosis but with bilateral lower extremity pitting edema. No obvious deformities. NEUROLOGICAL: Awake and alert. No obvious cranial nerve deficits. Motor grossly within normal limits. Five out of 5 muscle strength in the arms and legs. Normal speech. PSYCHIATRIC: Appropriate mood and affect; insight and judgment normal. Procedures None A/P Problem List: (1) CHF exacerbation ICD Code: I50.9 Status: Acute Assessment and Plan This is a 75-year-old male patient with past medical history includes hyperlipidemia, CHF, CAD status post [place] and CABG, hypertension, diabetes mellitus type 2. Patient also is on Coumadin with a supratherapeutic INR of 9.9 ; denies having atrial fibrillation and is not sure why he is taking Coumadin. Patient reports he had a cold which started 8 days ago and consisted of cough and congestion. Also has bilateral lower extremity edema. Acute on chronic systolic CHF exacerbation; EF 10%. Clinically improving Failed outpatient therapy BNP 904 Chest x-ray reveals no acute pulmonary infiltrates, moderate cardiomegaly Continue diuresis Consult cardiology Dr. Stewart, follows with him as OP as well . May need AICD. Continue Coreg. Unable to start PINKY inhibitor secondary to kidney disease Probable COPD- scattered wheezing with 90+ pack year history Duo nebs scheduled and as needed Solu-Medrol 1251 Improving Supratherapeutic INR 9.9. Improving down to 3.7 No active bleeding Vitamin K 2.5 mg by mouth given in emergency department Hold Coumadin Repeat INR in a.m. Monitor closely for signs of active bleeding Acute on chronic kidney disease stage III Hyponatremia 129 on admission likely hypervolemic. Slightly worse creatinine up sodium down to 126 Decrease Lasix to once a day. Avoid nephrotoxins Recheck in a.m. Hypertension continue Coreg 25 mg twice a day Probable history of atrial fibrillation continue digoxin hold Coumadin EKG reviewed V paced rhythm rate 99 Hypothyroidism continue Synthroid Diabetes mellitus sliding scale insulin coverage will hold metformin and restart glimepiride Discharge Planning Possible discharge in 1-2 days Problem Qualifiers (1) CHF exacerbation: Qualified Code: I50.9 - Acute on chronic congestive heart failure, unspecified congestive heart failure type George Schafer MD Mar 04, 2016 10:42
[2016-03-04] MEDS ORDERED: GUAI100S5 PO (10:45)
[2016-03-04] MEDS ORDERED: WARF-23 PO (10:45)
--- NOTE | 2016-03-04 10:45 | HHI.DCPOC ---
Discharge Care Plan Diagnosis: (1) CHF exacerbation Your Health Problems Are: Difficulty with ADL Exercise Tolerance Goals to Promote Your Health * To prevent worsening of your condition and complications * To maintain your health at the optimal level Directions to Meet Your Goals Take your medications as prescribed Follow your dietary instruction Follow activity as directed Keep your appointments as scheduled Take your immunizations and boosters as scheduled If your symptoms worsen call your PCP, if no PCP go to Urgent Care Center or Emergency Room Smoking is Dangerous to Your Health. Avoid second hand smoke Call the 24-hour hour crisis hotline for domestic abuse at George Schafer MD Mar 04, 2016 10:45
[2016-03-04] MEDS: guaiFENesin/CODEINE SYRUP 200 MG/20 MG/10 ML CUP PO PRN (20:06)
--- NOTE | 2016-03-04 20:58 | EKG ---
Date Performed: 03/02/2016 Time Performed: 13:10:09 PTAGE: 75 years EKG: ATRIAL FIBRILLATION ELECTRONIC VENTRICULAR PACEMAKER ABNORMAL RHYTHM ECG PREVIOUS TRACING : 05/22/2013 08.25 Compared to prior tracing no significant change DOCTOR: Zev Purdy Interpretating Date/Time 03/04/2016 20:57:37
[2016-03-05] VITALS (7 sets, daily range): BP systolic 100–125; BP diastolic 52–83; PULSE 88–106; RESP 18–20; TEMP 97.8–99.1; O2SAT 92–95
[2016-03-05] MEDS: guaiFENesin/CODEINE SYRUP 200 MG/20 MG/10 ML CUP PO PRN (04:33)
[2016-03-05] MEDS: INSULIN ASPART SUPPLEMENTAL SCALE SQ SCH ×4 (05:53→21:00)
[2016-03-05] MEDS: LEVOTHYROXINE SODIUM 100 MCG TAB PO SCH (05:53)
[2016-03-05 07:46] LABS: AUTOMATED NEUTROPHIL # 10.9 TH/MM3 (1.8-7.7); BASOPHIL % 0.1 % (0.0-2.0); HEMATOCRIT 34.2 % (39.0-51.0); HEMO FLAGS DIFF FINAL; LYMPH % 7.9 % (9.0-44.0); MEAN CELL VOLUME 77.2 FL (80.0-100.0); MEAN CORPUSCULAR HEMOGLOBIN 25.8 PG (27.0-34.0); MEAN CORPUSCULAR HGB CONC 33.5 % (32.0-36.0); MONO % 8.4 % (0.0-8.0); NEUT % 83.6 % (16.0-70.0); PLATELET COUNT 346 TH/MM3 (150-450); RED BLOOD COUNT 4.44 MIL/MM3 (4.50-5.90); RED CELL DISTRIBUTION WIDTH 16.7 % (11.6-17.2)
[2016-03-05 07:51] LABS: INTERNATIONAL NORMALIZED RATIO 2.9 RATIO
[2016-03-05 08:10] LABS: POTASSIUM 3.9 MEQ/L (3.5-5.1)
[2016-03-05] MEDS: RESP: ALBUTEROL 2.5 MG/IPRATROPIUM 0.5 MG NEB (SCH) NEB ×3 (08:19→20:09)
[2016-03-05] MEDS: GLIMEPIRIDE 4 MG TAB PO SCH (09:08)
[2016-03-05] MEDS: DIGOXIN 0.125 MG TAB PO SCH (09:08)
[2016-03-05] MEDS: PANTOPRAZOLE SOD 20 MG DELAYED RELEASE TAB PO SCH (09:08)
[2016-03-05] MEDS: CARVEDILOL 12.5 MG TAB PO SCH ×2 (09:08→23:27)
[2016-03-05] MEDS: guaiFENesin E.R. 600 MG TAB PO SCH ×2 (09:08→23:25)
[2016-03-05] MEDS: FUROSEMIDE 40 MG TAB PO SCH (09:08)
[2016-03-05] MEDS: SODIUM CHLORIDE 0.9% FLUSH 5 ML FLUSH FLUSH SCH ×2 (09:09→21:00)
--- NOTE | 2016-03-05 09:33 | HHI.PR ---
Subjective Remarks Follow up for CHF exacerbation, hyponatremia. The patient reports his breathing is better today. Denies any chest pain. Lower extremity swelling improved. O2 sat stable at 94% on room air. Na 125 today, downtrending from 126 yesterday. Denies any headache, lightheadedness, or dizziness. Denies any other medical complaints at this time. Objective Vitals Vital Signs Date Time Temp Pulse Resp B/P Pulse Ox O2 Delivery O2 Flow Rate FiO2 03/05/16 08:10 99.1 106 18 125/69 94 03/05/16 03:53 97.8 98 20 100/63 95 03/05/16 00:19 88 03/04/16 23:57 98.6 103 20 112/68 95 03/04/16 20:09 97 21 03/04/16 19:40 97.6 103 20 127/70 97 03/04/16 15:31 97.7 93 18 113/67 97 03/04/16 12:44 111 03/04/16 11:32 97.4 92 18 106/63 96 I/O 03/04/16 03/04/16 03/04/16 03/05/16 03/05/16 03/05/16 06:59 14:59 22:59 06:59 14:59 22:59 Intake Total 20 ml 300 ml Output Total 450 ml Balance 20 ml -450 ml 300 ml Intake Oral 20 ml 300 ml Output Urine Total 450 ml Result Diagram: 03/05/16 0710 03/05/16 0710 Imaging Last Impressions Chest X-Ray 03/02/16 1237 Signed Impressions: Service Date/Time: Wednesday, March 02, 2016 12:39 - CONCLUSION: 1. No acute pulmonary infiltrates. 2. Moderate compensated cardiomegaly. Romulo Koch MD Objective Remarks GENERAL: Well-nourished, well-developed pleasant elderly male patient in [facility]. SKIN: Warm and dry. No rash. HEAD: Normocephalic. Atraumatic. ENT: No nasal bleeding or discharge. Mucous membranes pink and moist. NECK: Supple. Trachea midline. CARDIOVASCULAR: Regular rate and rhythm. S1, S2 noted. No murmur appreciated. RESPIRATORY: No accessory muscle use. Diminished breath sounds, no crackles. Breath sounds equal bilaterally. GASTROINTESTINAL: Abdomen soft, non-tender, nondistended. Normoactive bowel sounds x4. MUSCULOSKELETAL: No obvious deformities.1+ BLE edema, improving. NEUROLOGICAL: Awake and alert. No obvious cranial nerve deficits. Motor grossly within normal limits. Normal speech. PSYCHIATRIC: Appropriate mood and affect; insight and judgment normal. Procedures None Medications and IVs Current Medications Medications (Trade) Dose Ordered Sig/Connie Route Start Time Stop Time Status Last Admin (NS Flush) 2 ml UNSCH PRN FLUSH 03/02/16 15:45 (NS Flush) 2 ml BID FLUSH 03/02/16 21:00 03/05/16 09:09 (Tylenol) 650 mg Q4H PRN PO 03/02/16 16:00 (Zofran Inj) 4 mg Q6H PRN IVP 03/02/16 16:00 (Compazine Supp) 25 mg Q12H PRN [place] 03/02/16 16:00 (Dulcolax Supp) 10 mg DAILY PRN [place] 03/02/16 16:00 (Senokot) 17.2 mg Q12H PRN PO 03/02/16 16:00 (Coreg) 25 mg BID PO 03/02/16 21:00 03/05/16 09:08 (Lanoxin) 0.125 mg DAILY PO 03/03/16 09:00 03/05/16 09:08 (Synthroid) 100 mcg DAILY@06 PO 03/03/16 06:00 03/05/16 05:53 (Protonix) 20 mg DAILY PO 03/03/16 09:00 03/05/16 09:08 (D50w (Vial) Inj) 25 ml UNSCH PRN IV PUSH 03/02/16 18:15 (Glucagon Inj) 1 mg UNSCH PRN OTHER 03/02/16 18:15 (Robitussin Ac 200-20 Mg/10 ml Liq) 10 ml Q4H PRN PO 03/04/16 09:00 03/05/16 04:33 (Tessalon) 200 mg Q8H PRN PO 03/04/16 09:00 03/04/16 19:17 (Mucinex Er) 600 mg BID PO 03/04/16 09:00 03/05/16 09:08 (Amaryl) 4 mg DAILY@08 PO 03/05/16 08:00 03/05/16 09:08 (Lasix) 40 mg DAILY PO 03/05/16 09:00 03/05/16 09:08 Urinary Catheter: No Vascular Central Line Catheter: No A/P Problem List: (1) CHF exacerbation ICD Code: I50.9 Status: Acute Assessment and Plan 75-year-old male patient with past medical history includes hyperlipidemia, CHF , CAD status post [place] and CABG, hypertension, diabetes mellitus type 2. Patient also is on Coumadin with a supratherapeutic INR of 9.9; denies having atrial fibrillation and is not sure why he is taking Coumadin. Patient reports he had a cold which started 8 days ago and consisted of cough and congestion. Also has bilateral lower extremity edema. Acute on chronic systolic CHF exacerbation, Failed Outpatient. Upon arrival, CXR images reviewed by me, moderate cardiomegaly, no infiltrates. BNP 904. Repeat echocardiogram showed EF 10%, severely reduced systolic function. Initially given IV lasix however with worsening renal function, changed to Lasix 40mg po daily. Consulted cardiology, patient follows with Dr. Stewart, seen by Dr. Smith, appreciate recommendations. Patient has AICD placed in 2013. Continue Coreg, unable to have PINKY inhibitor secondary to CKD. Clinically improving. Discussed with Dr. Smith today, ok to d/c from cardiac standpoint and outpatient f/up with Dr. Stewart. Patient has appt on 03/10. Probable COPD- scattered wheezing with 90+ pack year history. Given Duo nebs scheduled and prn. S/p IV Solu-Medrol 1251. Much improved, no further wheezing. Supratherapeutic INR 9.9: No active bleeding. S/p Vitamin K 2.5mg po in the ED. Repeat INR shows improvement to 2.9 today. Monitor INR. Resolved. Acute on chronic kidney disease, stage III: Slightly worse creatinine up to 1.62 and sodium down to 126. Decreased Lasix to once a day. Avoid nephrotoxins. Renal function improving, Cr 1.5 today. Hyponatremia: Na 129 on admission. Likely hypervolemic. On diuretics. Na 125 today, will continue to monitor, repeat BMP in am. Hypertension: continue Coreg 25 mg bid. BP well controlled. Probable history of atrial fibrillation: continue digoxin, continue Coumadin now that INR within therapeutic range; pharmacy consulted. EKG reviewed, paced rhythm rate 99. Hypothyroidism: continue Synthroid Diabetes mellitus: Accu-checks with sliding scale insulin coverage, held metformin and restart glimepiride DVT Prophylaxis: on Coumadin Written by Courtney Fernandez, acting as scribe for Dr. Schafer on 03/05/16 at 09: 30. The documentation accurately reflects the work performed [id number] by me on at 0930 Discharge Planning Sodium still low, will continue to treat, repeat BMP in am, hopefully discharge tomorrow if improves. Problem Qualifiers (1) CHF exacerbation: Qualified Code: I50.9 - Acute on chronic congestive heart failure, unspecified congestive heart failure type Courtney Fernandez PA-C Mar 05, 2016 09:33 George Schafer MD Mar 05, 2016 17:58
[2016-03-06 00:05] VITALS: PULSE 89
[2016-03-06 00:20] VITALS: BP 115/50; PULSE 100; RESP 21; TEMP 97.9; O2SAT 93
[2016-03-06] MEDS: INSULIN ASPART SUPPLEMENTAL SCALE SQ SCH (06:44)
[2016-03-06 07:43] VITALS: BP 119/63; PULSE 108; RESP 16; TEMP 98.6; O2SAT 99
[2016-03-06 08:09] VITALS: PULSE 101
[2016-03-06] MEDS: RESP: ALBUTEROL 2.5 MG/IPRATROPIUM 0.5 MG NEB (SCH) NEB (08:52)
[2016-03-06 08:56] VITALS: O2SAT 91
--- NOTE | 2016-03-06 09:02 | HHI.PR ---
Subjective Remarks Follow up for CHF and COPD exacerbations, with hyponatremia. The patient reports breathing better today, denies shortness of breath. Denies any headache , lightheadedness, dizziness. He has been ambulating without difficulty. He is looking forward to going home today. Objective Vitals Vital Signs Date Time Temp Pulse Resp B/P Pulse Ox O2 Delivery O2 Flow Rate FiO2 03/06/16 08:56 91 03/06/16 08:09 101 03/06/16 07:43 98.6 108 16 119/63 99 03/06/16 00:20 97.9 100 21 115/50 93 03/06/16 00:05 89 03/05/16 21:09 98.2 105 19 114/52 93 03/05/16 17:50 98.5 106 18 100/55 94 03/05/16 17:37 98 03/05/16 11:21 98.2 101 18 114/83 92 I/O 03/05/16 03/05/16 03/05/16 03/06/16 03/06/16 03/06/16 07:00 15:00 23:00 07:00 15:00 23:00 Intake Total 350 ml Output Total 300 ml 250 ml Balance -300 ml 100 ml Intake Oral 350 ml Output Urine Total 300 ml 250 ml # Voids 1 Result Diagram: 03/05/16 0710 03/05/16 0710 Imaging Last Impressions Chest X-Ray 03/02/16 1237 Signed Impressions: Service Date/Time: Wednesday, March 02, 2016 12:39 - CONCLUSION: 1. No acute pulmonary infiltrates. 2. Moderate compensated cardiomegaly. Romulo Koch MD Objective Remarks GENERAL: Well-nourished, well-developed pleasant elderly male patient in [facility]. SKIN: Warm and dry. No rash. HEAD: Normocephalic. Atraumatic. ENT: No nasal bleeding or discharge. Mucous membranes pink and moist. NECK: Supple. Trachea midline. CARDIOVASCULAR: Regular rate and rhythm. S1, S2 noted. No murmur appreciated. RESPIRATORY: No accessory muscle use. Slight rhonchi at right base that clears with cough. Breath sounds equal bilaterally. GASTROINTESTINAL: Abdomen soft, non-tender, nondistended. Normoactive bowel sounds x4. MUSCULOSKELETAL: No obvious deformities. Trace BLE edema, improving. NEUROLOGICAL: Awake and alert. No obvious cranial nerve deficits. Motor grossly within normal limits. Normal speech. PSYCHIATRIC: Appropriate mood and affect; insight and judgment normal. Procedures None Medications and IVs Current Medications Medications (Trade) Dose Ordered Sig/Connie Route Start Time Stop Time Status Last Admin (NS Flush) 2 ml UNSCH PRN FLUSH 03/02/16 15:45 (NS Flush) 2 ml BID FLUSH 03/02/16 21:00 03/06/16 09:08 (Tylenol) 650 mg Q4H PRN PO 03/02/16 16:00 (Zofran Inj) 4 mg Q6H PRN IVP 03/02/16 16:00 (Compazine Supp) 25 mg Q12H PRN [place] 03/02/16 16:00 (Dulcolax Supp) 10 mg DAILY PRN [place] 03/02/16 16:00 (Senokot) 17.2 mg Q12H PRN PO 03/02/16 16:00 (Coreg) 25 mg BID PO 03/02/16 21:00 03/06/16 09:09 (Lanoxin) 0.125 mg DAILY PO 03/03/16 09:00 03/06/16 09:09 (Synthroid) 100 mcg DAILY@06 PO 03/03/16 06:00 03/06/16 09:09 (Protonix) 20 mg DAILY PO 03/03/16 09:00 03/06/16 09:09 (D50w (Vial) Inj) 25 ml UNSCH PRN IV PUSH 03/02/16 18:15 (Glucagon Inj) 1 mg UNSCH PRN OTHER 03/02/16 18:15 (Robitussin Ac 200-20 Mg/10 ml Liq) 10 ml Q4H PRN PO 03/04/16 09:00 03/05/16 04:33 (Tessalon) 200 mg Q8H PRN PO 03/04/16 09:00 03/04/16 19:17 (Mucinex Er) 600 mg BID PO 03/04/16 09:00 03/06/16 09:09 (Amaryl) 4 mg DAILY@08 PO 03/05/16 08:00 03/06/16 09:09 Furosemide 40 mg 40 mg DAILY PO 03/05/16 09:00 03/06/16 09:09 (Coumadin Consult Pharmacy) 0 ml @ 0 mls/hr UNSCH OTHER 03/05/16 10:45 (KCl) 30 meq ONCE ONCE PO 03/06/16 10:15 03/06/16 10:16 UNV (Sodium Chloride) 1 gm DAILY PO 03/06/16 10:15 UNV Urinary Catheter: No Vascular Central Line Catheter: No A/P Problem List: (1) CHF exacerbation ICD Code: I50.9 Status: Acute Assessment and Plan 75-year-old male patient with past medical history includes hyperlipidemia, CHF , 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 Patient also is on Coumadin with a supratherapeutic INR of 9.9. Patient reports he had a cold which started 8 days ago and consisted of cough and congestion. Also has bilateral lower extremity edema. Acute on chronic systolic CHF exacerbation, Failed Outpatient. Upon arrival, CXR images reviewed by me, moderate cardiomegaly, no infiltrates. BNP 904. Repeat echocardiogram showed EF 10%, severely reduced systolic function. Initially given IV lasix however with worsening renal function, changed to Lasix 40mg po daily. Consulted cardiology, patient follows with Dr. Stewart, seen by Dr. Smith, appreciate recommendations. Patient has AICD placed in 2013. Continue Coreg, unable to have PINKY inhibitor secondary to CKD. Clinically improving. Discussed with Dr. Smith, ok to d/c from cardiac standpoint and outpatient f/up with Dr. Stewart. Patient has appt on 03/10. Probable COPD- scattered wheezing with 90+ pack year history. Given Duo nebs scheduled and prn. S/p IV Solu-Medrol 1251. Much improved, no further wheezing. Hx of Afib with Supratherapeutic INR 9.9: No active bleeding. S/p Vitamin K 2.5mg po in the ED. Repeat INR shows improvement to 2.9. Monitor INR. Continue digoxin, continue Coumadin now that INR within therapeutic range; pharmacy consulted. EKG reviewed, paced rhythm rate 99. Acute on chronic kidney disease, stage III: Slightly worse creatinine up to 1.62 and sodium down to 126. Decreased Lasix to once a day. Avoid nephrotoxins. Renal function improving, Cr 1.37 today. BMP as outpatient. Hyponatremia: Na 129 on admission. Likely hypervolemic. On diuretics. Serum osmolality 277, urine osmolality 316, urine Na 25. Na decreased to 125, now up to 126 today. Has chronic hx of hyponatremia on previous admissions. Patient is asymptomatic. Will start on NaCl 1G po qd x5days and repeat BMP as outpatient in 2-3 days. Hypertension: continue Coreg 25 mg bid. BP well controlled. Hypothyroidism: continue Synthroid Diabetes mellitus: Accu-checks with sliding scale insulin coverage, held metformin and restart glimepiride. Hypokalemia: K 3.3 today, likely secondary to diuresis. Given po KCl replacement. Repeat BMP as outpatient in 2-3 days. DVT Prophylaxis: on Coumadin Written by Courtney Fernandez, acting as scribe for Dr. Schafer on 03/06/16 at 09: 00. The documentation accurately reflects the work performed [id number] by me on at 0900 Problem Qualifiers (1) CHF exacerbation: Qualified Code: I50.9 - Acute on chronic congestive heart failure, unspecified congestive heart failure type Courtney Fernandez PA-C Mar 06, 2016 09:02 George Schafer MD Mar 06, 2016 15:07
[2016-03-06] MEDS: SODIUM CHLORIDE 0.9% FLUSH 5 ML FLUSH FLUSH SCH (09:08)
[2016-03-06] MEDS: PRAVASTATIN SOD 20 MG TAB PO SCH (09:08)
[2016-03-06] MEDS: GLIMEPIRIDE 4 MG TAB PO SCH (09:09)
[2016-03-06] MEDS: FUROSEMIDE 40 MG TAB PO SCH (09:09)
[2016-03-06] MEDS: guaiFENesin E.R. 600 MG TAB PO SCH (09:09)
[2016-03-06] MEDS: PANTOPRAZOLE SOD 20 MG DELAYED RELEASE TAB PO SCH (09:09)
[2016-03-06] MEDS: LEVOTHYROXINE SODIUM 100 MCG TAB PO SCH (09:09)
[2016-03-06] MEDS: DIGOXIN 0.125 MG TAB PO SCH (09:09)
[2016-03-06] MEDS: CARVEDILOL 12.5 MG TAB PO SCH (09:09)
[2016-03-06 09:16] LABS: INTERNATIONAL NORMALIZED RATIO 2.3 RATIO; PROTHROMBIN TIME - PATIENT 26.9 SEC (9.8-11.6)
[2016-03-06 09:55] LABS: BICARBONATE 30.5 MEQ/L (21.0-32.0); POTASSIUM 3.3 MEQ/L (3.5-5.1)
[2016-03-06] MEDS ORDERED: SODI1TAB PO (10:08)
[2016-03-06] MEDS ORDERED: POTASSIUM CHLORIDE 10 MEQ CONTROLLED RELEASE TAB PO ONE (10:15)
--- NOTE | 2016-03-06 10:18 | HHI.DS ---
cc: Chiara Olsen (Vipin); Geovanny Stewart MD Discharge Summary Admission Date Mar 02, 2016 at 15:34 Discharge Date: Mar 06, 2016 Admitting Diagnosis CHF exacerbation, elevated INR (1) CHF exacerbation ICD Code: I50.9 Diagnosis: Principal (2) COPD exacerbation ICD Code: J44.1 Diagnosis: Secondary (3) A-fib ICD Code: I48.91 Diagnosis: Secondary (4) Supratherapeutic INR ICD Code: R79.1 Diagnosis: Secondary Procedures None Brief History - From Admission This is a 75-year-old male patient with past medical history includes hyperlipidemia, CHF, CAD status post [place] and CABG, hypertension, diabetes mellitus type 2. Patient also is on Coumadin with a supratherapeutic INR of 9.9 ; denies having atrial fibrillation and is not sure why he is taking Coumadin. Patient reports he had a cold which started 8 days ago and consisted of cough and congestion. Patient was seen by his primary care provider and given prednisone as well as Lasix 3 days ago. Patient reports he is not gotten any better and is unable to take the by mouth prednisone and Lasix as he is coughing so much that it causes him to vomit up the medication. Patient's is in the room and also reports he's had bilateral lower extremity edema for the past 5-8 days. Patient requires 2 pillows to sleep at night and notices that his cough is worse when he is walking or trying to lay down to rest. Patient denies chest pain shortness of breath diarrhea constipation fevers or chills. Patient also denies weight gain. Patient denies hematemesis nose bleeding bright red blood per rectum or tarry stools. CBC/BMP: 03/05/16 0710 03/06/16 0829 Significant Findings Laboratory Tests Test 03/03/16 03/04/16 03/05/16 03/06/16 11:12 05:38 07:10 08:29 Prothrombin Time 47.6 SEC 43.7 SEC 34.0 SEC 26.9 SEC (9.8-11.6) (9.8-11.6) (9.8-11.6) (9.8-11.6) White Blood Count 19.0 TH/MM3 13.0 TH/MM3 (4.0-11.0) (4.0-11.0) Hemoglobin 11.7 GM/DL 11.5 GM/DL (13.0-17.0) (13.0-17.0) Hematocrit 35.8 % 34.2 % (39.0-51.0) (39.0-51.0) Mean Corpuscular Volume 78.0 FL 77.2 FL (80.0-100.0) (80.0-100.0) Mean Corpuscular Hemoglobin 25.4 PG 25.8 PG (27.0-34.0) (27.0-34.0) Neutrophils (%) (Auto) 89.8 % 83.6 % (16.0-70.0) (16.0-70.0) Lymphocytes (%) (Auto) 4.0 % 7.9 % (9.0-44.0) (9.0-44.0) Neutrophils # (Auto) 17.0 TH/MM3 10.9 TH/MM3 (1.8-7.7) (1.8-7.7) Lymphocytes # (Auto) 0.8 TH/MM3 (1.0-4.8) Monocytes # (Auto) 1.1 TH/MM3 1.1 TH/MM3 (0-0.9) (0-0.9) Sodium Level 126 MEQ/L 125 MEQ/L 126 MEQ/L (136-145) (136-145) (136-145) Chloride Level 87 MEQ/L 82 MEQ/L 86 MEQ/L (98-107) (98-107) (98-107) Anion Gap 18 MEQ/L (5-15) Blood Urea Nitrogen 32 MG/DL (7-18) 34 MG/DL (7-18) 34 MG/DL (7-18) Creatinine 1.62 MG/DL 1.50 MG/DL 1.37 MG/DL (0.60-1.30) (0.60-1.30) (0.60-1.30) Estimat Glomerular Filtration 42 ML/MIN (>89) 46 ML/MIN (>89) 51 ML/MIN (>89) Rate Random Glucose 144 MG/DL 140 MG/DL (74-106) (74-106) B-Type Natriuretic Peptide 889 PG/ML 808 PG/ML (0-100) (0-100) Red Blood Count 4.44 MIL/MM3 (4.50-5.90) Monocytes (%) (Auto) 8.4 % (0.0-8.0) Potassium Level 3.3 MEQ/L (3.5-5.1) Imaging Last Impressions Chest X-Ray 03/02/16 1237 Signed Impressions: Service Date/Time: Wednesday, March 02, 2016 12:39 - CONCLUSION: 1. No acute pulmonary infiltrates. 2. Moderate compensated cardiomegaly. Romulo Koch MD PE at Discharge GENERAL: Well-nourished, well-developed pleasant elderly male patient in [facility]. SKIN: Warm and dry. No rash. HEAD: Normocephalic. Atraumatic. ENT: No nasal bleeding or discharge. Mucous membranes pink and moist. NECK: Supple. Trachea midline. CARDIOVASCULAR: Regular rate and rhythm. S1, S2 noted. No murmur appreciated. RESPIRATORY: No accessory muscle use. Slight rhonchi at right base that clears with cough. Breath sounds equal bilaterally. GASTROINTESTINAL: Abdomen soft, non-tender, nondistended. Normoactive bowel sounds x4. MUSCULOSKELETAL: No obvious deformities. Trace BLE edema, improving. NEUROLOGICAL: Awake and alert. No obvious cranial nerve deficits. Motor grossly within normal limits. Normal speech. PSYCHIATRIC: Appropriate mood and affect; insight and judgment normal. Hospital Course 75-year-old male patient with past medical history includes hyperlipidemia, CHF , CAD status post [place] and CABG, hypertension, diabetes mellitus type 2. Patient also is on Coumadin with a supratherapeutic INR of 9.9. Patient reports he had a cold which started 8 days ago and consisted of cough and congestion. Also has bilateral lower extremity edema. Acute on chronic systolic CHF exacerbation, Failed Outpatient. Upon arrival, CXR images reviewed by me, moderate cardiomegaly, no infiltrates. BNP 904. Repeat echocardiogram showed EF 10%, severely reduced systolic function. Initially given IV lasix however with worsening renal function, changed to Lasix 40mg po daily. Consulted cardiology, patient follows with Dr. Stewart, seen by Dr. Smith, appreciate recommendations. Patient has AICD placed in 2013. Continue Coreg, unable to have PINKY inhibitor secondary to CKD. Clinically improving. Discussed with ra Good to d/c from cardiac standpoint and outpatient f/up with Dr. Stewart. Patient has appt on 03/10. Probable COPD- scattered wheezing with 90+ pack year history. Given Duo nebs scheduled and prn. S/p IV Solu-Medrol 1251. Much improved, no further wheezing. Hx of Afib with Supratherapeutic INR 9.9: No active bleeding. S/p Vitamin K 2.5mg po in the ED. Repeat INR shows improvement to 2.9. Monitor INR. Continue digoxin, continue Coumadin now that INR within therapeutic range; pharmacy consulted. EKG reviewed, paced rhythm rate 99. Acute on chronic kidney disease, stage III: Slightly worse creatinine up to 1.62 and sodium down to 126. Decreased Lasix to once a day. Avoid nephrotoxins. Renal function improving, Cr 1.37 today. BMP as outpatient. Hyponatremia: Na 129 on admission. Likely hypervolemic. On diuretics. Serum osmolality 277, urine osmolality 316, urine Na 25. Na decreased to 125, now up to 126 today. Has chronic hx of hyponatremia on previous admissions. Patient is asymptomatic. Will start on NaCl 1G po qd x5days and repeat BMP as outpatient in 2-3 days. Hypertension: continue Coreg 25 mg bid. BP well controlled. Hypothyroidism: continue Synthroid Diabetes mellitus: Accu-checks with sliding scale insulin coverage, held metformin and restart glimepiride. Hypokalemia: K 3.3 today, likely secondary to diuresis. Given po KCl replacement. Repeat BMP as outpatient in 2-3 days. DVT Prophylaxis: on Coumadin Written by Courtney Fernandez, acting as scribe for Dr. Schafer on 03/06/16 at 09: 00. The documentation accurately reflects the work performed [id number] by me on at 0900 Pt Condition on Discharge: Stable Discharge Disposition: Discharge Home Discharge Time: > 30 minutes Discharge Instructions DIET: Follow Instructions for: Heart Healthy Diet, Diabetic Diet Activities you can perform: Regular-No Restrictions Activities to Avoid: Driving Follow up Referrals: Cardiology - 1 Week PCP Follow-up - 2-3 Days New Orders: BASIC METABOLIC PROF - 03/09/16 PT/INR New Medications: Guaifenesin-Codeine Liq (Guaifenesin-Codeine Liq) 100-10 Mg/5 Ml Soln 10 ML PO Q4H PRN COUGH #180 ML Sodium Chloride (Sodium Chloride) 1 Gm Tab 1 GM PO DAILY sodium replacement #5 TAB Changed Medications: Warfarin (Warfarin) 5 Mg Tab 2.5 MG PO DAILY Keep INR 2-3 Blood Clot Prevention #30 Ref 0 TAB (Changed from: 5 MG) Continued Medications: Benzonatate (Benzonatate) 100 Mg Cap 200 MG PO TID PRN COUGH Ref 0 CAP Carvedilol (Carvedilol) 25 Mg Tab 25 MG PO BID #60 Ref 0 TAB Digoxin (Digoxin) 0.125 Mg Tab 0.125 MG PO DAILY Regulate Heart Beat #30 Ref 0 TAB Furosemide (Furosemide) 40 Mg Tab 40 MG PO DAILY #30 Ref 0 TAB Glimepiride (Glimepiride) 4 Mg Tab 4 MG PO DAILY Take with breakfast or first main meal Blood Sugar Management #30 Ref 0 TAB Levothyroxine (Levothyroxine) 100 Mcg Tab 100 MCG PO DAILY Thyroid #30 Ref 0 TAB Loratadine (Loratadine) 10 Mg Tab 10 MG PO DAILY Allergy Management Ref 0 TAB Nitroglycerin SL (Nitrostat SL) 0.4 Mg Subl 0.4 MG SL DIRECTED 1 tablet under the tongue as needed for chest pain. Repeat every 5 minutes for a total of 3 DOSES or call 911 if NO relief. PRN CHEST PAIN #100 Ref 0 TAB.SL Omeprazole (Omeprazole) 20 Mg Tab 20 MG PO DAILY #30 Ref 0 TAB Simvastatin (Simvastatin) 10 Mg Tab 10 MG PO EVERY OTHER DAY Cholesterol Management #30 Ref 0 TAB Discontinued Medications: Methylprednisolone (Methylprednisolone) 4 Mg Tab 4 MG PO DAILY Ref 0 TAB Courtney Fernandez PA-C Mar 06, 2016 10:18 George Schafer MD Mar 06, 2016 15:08
[2016-03-06] MEDS ORDERED: SODIUM CHLORIDE 1 GRAM TAB PO SCH (10:30)
[2016-03-06] MEDS ORDERED: WARFARIN SOD 4 MG TAB PO SCH (16:00)
== END 2016-03-06 12:06 | disposition home or self-care (01) ==
LOC: NEPC 12:16 → NEDA 15:34 → NEPHCDU 16:40
PROVIDERS: ADMIT Internal Medicine; ATTEND Internal Medicine
DX: I50.23 Acute on chronic systolic (congestive) heart failure (principal); R09.89 Other specified symptoms and signs involving the circulatory and respiratory systems; R63.0 Anorexia; E78.00 Pure hypercholesterolemia, unspecified; R07.9 Chest pain, unspecified; I25.10 Atherosclerotic heart disease of native coronary artery without angina pectoris; I25.2 Old myocardial infarction; Z79.01 Long term (current) use of anticoagulants; Z79.84 Long term (current) use of oral hypoglycemic drugs; Z95.1 Presence of aortocoronary bypass graft; E78.5 Hyperlipidemia, unspecified; E11.22 Type 2 diabetes mellitus with diabetic chronic kidney disease; E87.1 Hypo-osmolality and hyponatremia; E03.9 Hypothyroidism, unspecified; Z95.0 Presence of cardiac pacemaker; J44.1 Chronic obstructive pulmonary disease with (acute) exacerbation; I48.91 Unspecified atrial fibrillation; N18.3 Chronic kidney disease, stage 3 (moderate); I13.0 Hypertensive heart and chronic kidney disease with heart failure and stage 1 through stage 4 chronic kidney disease, or unspecified chronic kidney disease; E87.6 Hypokalemia; Z79.899 Other long term (current) drug therapy
CPT/HCPCS: 71010; 80048; 80053; 82550; 82552; 82948; 83735; 83880; 83930; 83935; 84300; 84443; 84484; 85007; 85025; 85027; 85610; 85730; 93005; 93306; 94640; 94664; 96374; 97162; 99285; G0378; G8987; G8988; J1815; J1940; J2930